=== PATIENT | female | born 1970 | race Caucasian/White ===

== ENCOUNTER 2018-02-14 14:43 | Emergency (ER) | payer SELFPAY ==
[~2018-02-14] VITALS: Ht 154.9 cm; Wt 68.6 kg
[2018-02-14 14:45] VITALS: BP 139/63
[2018-02-14] MEDS ORDERED: [UNRECOGNIZED DRUG - CODE] PO (14:50)
[2018-02-14 14:54] LABS: GLUCOSE,POINT OF CARE 140 MG/DL (70-110)
== END 2018-02-14 15:25 | disposition left against medical advice (07) ==
LOC: EMS 14:46
DX: Z53.21 Procedure and treatment not carried out due to patient leaving prior to being seen by health care provider (principal)